=== PATIENT | female | born 1935 | race Caucasian/White ===

== ENCOUNTER 2022-09-06 11:04 | Inpatient (IN) | payer OTHER ==
[~2022-09-06] VITALS: Ht 157.5 cm; Wt 54.0 kg
[2022-09-06 11:33] LABS: BASOPHILS % (AUTO) 0.2 % (0.0-2.0); EOSINOPHILS % (AUTO) 0.1 % (0.0-4.0); HEMATOCRIT 28.2 % (36-48); HEMOGLOBIN 9.6 g/dL (12.0-16.0); LYMPHOCYTES # (AUTO) 1.2 K/uL (1.0-5.5); LYMPHOCYTES % (AUTO) 12.6 % (20.5-51.5); MEAN CORPUSCULAR HEMOGLOBIN 30 pg (27-31); MEAN CORPUSCULAR HGB CONC 34 % (32-36); MEAN CORPUSCULAR VOLUME 88 fL (79.0-98.0); MONOCYTES # (AUTO) 1.1 K/uL (0.0-1.0); MONOCYTES % (AUTO) 11.9 % (1.7-9.3); NEUTROPHILS # (AUTO) 7.3 K/uL (1.8-7.7); NEUTROPHILS % (AUTO) 75.2 % (40.0-70.0); PLATELET COUNT (AUTO) 297 K/uL (130-430); RED CELL DISTRIBUTION WIDTH 13.9 % (9.0-15.0); WHITE BLOOD COUNT (AUTO) 9.6 K/uL (4.8-10.8)
[2022-09-06 11:41] VITALS: BP_SYST 133
[2022-09-06 12:02] LABS: ANION GAP 6 (5-15); CREATININE 1.39 mg/dL (0.55-1.30); GLUCOSE 151 mg/dL (70-99); UREA NITROGEN, BLOOD 30 mg/dL (8-21)
[2022-09-06 12:08] LABS: ALANINE AMINOTRANSFERASE 40 U/L (12-78); ALBUMIN 3.9 g/dL (3.4-4.8); ASPARTATE AMINOTRANSFERASE 83 U/L (10-37); TOTAL BILIRUBIN 0.5 mg/dL (0.0-1.0)
[2022-09-06 12:09] LABS: CHLORIDE 85 mmol/L (98-107)
--- NOTE | 2022-09-06 12:09 | NUR ---
Patient to ER bed H1 to gown for evaluation. Side rails up.
--- NOTE | 2022-09-06 12:10 | NUR ---
Pt brought by Son, Alert and oriented x 4, pt presents to ER with SOB x 2 weeks, O2 97%, VSS, pt denies chest pain, skin pink and warm, cap refill <3, VSS, will cont to monitor
--- NOTE | 2022-09-06 12:12 | NUR ---
Dr Winters evaluating patient at bedside
[2022-09-06] MEDS ORDERED: METHYLPREDNISOLONE SOD SUCC 40 MG/ML VIAL IVP ONE ×2 (12:30→14:00)
--- NOTE | 2022-09-06 12:37 | NUR ---
COVID-19 SWAB AND INFLUENZA SWAB OBTAINED, LABELED, AND SENT TO THE LAB.
[2022-09-06] MEDS ORDERED: AZITHROMYCIN 500 MG in NS 250 ML IV ONE (12:45)
[2022-09-06] MEDS ORDERED: cefTRIAXone 1 GM IVPB PREMIX 50 ML IV ONE (12:45)
[2022-09-06] MEDS ORDERED: FUROSEMIDE 20 MG/2 ML VIAL IVP ONE (13:30)
--- NOTE | 2022-09-06 14:04 | NUR ---
Admit bed requested Patient will be admitted to care of . Admitted to TELE unit. Diagnosis COPD EXACERBATION Inpatient (Yes or No) YES Observation (Yes or No) NO Orientation concerns or request close to nursing station (Yes or No) NO Covid Status NEGATIVE On vent or bipap NO Isolation requirements NO Needs a sitter NO From Home (Yes or if No enter name of facility) HOME Requires Dialysis (Yes or No) NO Med Rec Completed (Yes of No) YES
--- NOTE | 2022-09-06 14:04 | NUR ---
Placed in room 08 . Placed on cardiac catheterization technician, blood pressure machine and pulse oximeter. To gown for exam. Side rails up. Report given to MIKY RODRIGUEZ.
[2022-09-06] MEDS ORDERED: AZITHROMYCIN 500 MG/VIAL (ZITHROMAX) IV ONE ×2 (15:15→15:32)
[2022-09-06] MEDS ORDERED: FUROSEMIDE 20 MG/2 ML VIAL ONE (15:32)
--- NOTE | 2022-09-06 15:41 | NUR ---
CONSULTATION PAGED/CALLED Reason for Consultation: [] RENAL Person Who was Notified: [] DR BOYCE Consulting Physician: [] DR BOYCE Electronic Page Makeup System Operator Specialty: [] NEPHRO Ordering Physician: [] DR CALDWELL
[2022-09-06] MEDS ORDERED: ACETAMINOPHEN 500 MG TABLET PO ONE (18:00)
[2022-09-06] MEDS ORDERED: LORazepam 1 MG TABLET PO ONE (18:00)
--- NOTE | 2022-09-06 18:13 | NUR ---
PULMOLOGYST AT BEDSIDE FOR INITIAL ASSESSMENT.
[2022-09-06] MEDS: IPRATROPIUM/ALBUTEROL SULFATE 3 ML AMPUL.NEB (DUONEB) INH SCH ×2 (19:00→23:25)
--- NOTE | 2022-09-06 19:30 | NUR ---
REPORT REC FROM MICHAEL BOLAÑOS. PT LAYING IN BED AWAKE, PT UNWILLING TO ANSWER QUESTIONS AND STATES "I WANT TO GO TO SLEEP" AND ROLLED OVER AND CLOSED EYES. VSS. SAFETY PRECAUTIONS IN PLACE AND CONNECTED TO MONITOR.
[2022-09-06] MEDS: NACL 0.9% 1,000 ML IV SCH (19:59)
[2022-09-06 20:37] VITALS: BP_SYST 104
--- NOTE | 2022-09-06 21:02 | NUR ---
PT UNABLE TO PROVIDE MED REC.
--- NOTE | 2022-09-06 21:26 | NUR ---
ADMISSION NOTE Received patient from ER via gurmiles, received report from RN. Patient admitted with diagnosis of COPD EXASCERBATION. Patient oriented to hospital routine, call light, toileting and safety-patient verbalized understanding.
--- NOTE | 2022-09-06 21:45 | NUR ---
Patient will be admitted to care of DR. CALDWELL. Admitted to TELEMETRY unit. Will go to room 122A. Belongings list completed. Complete and up to date summary report printed. SBAR report given to VALENTIN BOLAÑOS at bedside with opportunity for questions.
[2022-09-06 22:12] VITALS: BP_SYST 123
--- NOTE | 2022-09-06 22:30 | NUR ---
Initial RN notes Received pt from ED. Pt asleep, no s/s distress noted, no sob noted. O2 sat 95% on 1L via NC. IVF infusing on L. AC 20G good blood return. Call light within reach. Bed low, locked, siderails up x4, alarm on. Safety maintained. To monitor.
[2022-09-06] MEDS: METHYLPREDNISOLONE SOD SUCC 40 MG/ML VIAL IVP SCH (22:57)
[2022-09-06] MEDS: ENOXAPARIN SODIUM 30 MG/0.3 ML SYRINGE SUBCUT SCH (22:58)
--- NOTE | 2022-09-07 02:02 | NUR ---
Rounds Pt asleep, no s/s distress noted. Call light within reach. Safety maintained. To monitor.
[2022-09-07] MEDS: IPRATROPIUM/ALBUTEROL SULFATE 3 ML AMPUL.NEB (DUONEB) INH SCH ×6 (03:10→23:48)
--- NOTE | 2022-09-07 03:38 | NUR ---
Consultation Paged Reason for Consultation: COPD Was consult called: Y Person who was notified: Abi Consulting Physician: Dr. Benson Ordering Physician: Vernell Lofton
--- NOTE | 2022-09-07 04:50 | NUR ---
Pt had breathing treatment.
--- NOTE | 2022-09-07 06:50 | NUR ---
Closing notes Pt alert, awake, no s/s distress noted. Call light within reach. Bed low, locked, siderails up x4, alarm on. Fall precaution in place. To endorse to AM nurse.
[2022-09-07 08:00] VITALS: BP_SYST 100
[2022-09-07] MEDS: METHYLPREDNISOLONE SOD SUCC 40 MG/ML VIAL IVP SCH ×2 (08:14→20:18)
[2022-09-07] MEDS: cefTRIAXone 1 GM in D5W 50 ML IV SCH (08:14)
[2022-09-07 08:33] LABS: HEMATOCRIT 26.8 % (36-48); HEMOGLOBIN 9.2 g/dL (12.0-16.0); LYMPHOCYTES # (AUTO) 0.5 K/uL (1.0-5.5); LYMPHOCYTES % (AUTO) 6.9 % (20.5-51.5); MEAN CORPUSCULAR HEMOGLOBIN 30 pg (27-31); MEAN CORPUSCULAR HGB CONC 34 % (32-36); MEAN CORPUSCULAR VOLUME 88 fL (79.0-98.0); MONOCYTES # (AUTO) 0.6 K/uL (0.0-1.0); MONOCYTES % (AUTO) 7.7 % (1.7-9.3); NEUTROPHILS # (AUTO) 6.4 K/uL (1.8-7.7); NEUTROPHILS % (AUTO) 85.4 % (40.0-70.0); PLATELET COUNT (AUTO) 304 K/uL (130-430); RED BLOOD CELL COUNT(AUTO) 3.04 MIL/uL (4.2-6.2); RED CELL DISTRIBUTION WIDTH 13.7 % (9.0-15.0); WHITE BLOOD COUNT (AUTO) 7.5 K/uL (4.8-10.8)
[2022-09-07 08:49] LABS: ANION GAP 11 (5-15); CALCIUM 8.7 mg/dL (8.4-11.0); CHLORIDE 87 mmol/L (98-107); CREATININE 1.34 mg/dL (0.55-1.30); GLUCOSE 174 mg/dL (70-99); UREA NITROGEN, BLOOD 30 mg/dL (8-21)
[2022-09-07 08:54] LABS: ALANINE AMINOTRANSFERASE 38 U/L (12-78); ALBUMIN 3.6 g/dL (3.4-4.8); ASPARTATE AMINOTRANSFERASE 66 U/L (10-37); TOTAL BILIRUBIN 0.5 mg/dL (0.0-1.0)
[2022-09-07 13:40] VITALS: BP_SYST 112
[2022-09-07 15:43] VITALS: BP_SYST 99
[2022-09-07] MEDS ORDERED: METF500S9 PO (19:24)
[2022-09-07] MEDS ORDERED: OMEG-158 PO (19:24)
[2022-09-07] MEDS ORDERED: SYN50 PO (19:24)
[2022-09-07] MEDS ORDERED: METO25TA3 PO (19:24)
[2022-09-07 20:00] VITALS: BP_SYST 118
[2022-09-07] MEDS: ENOXAPARIN SODIUM 30 MG/0.3 ML SYRINGE SUBCUT SCH (20:19)
[2022-09-08] VITALS: BP_SYST 109
[2022-09-08] MEDS: IPRATROPIUM/ALBUTEROL SULFATE 3 ML AMPUL.NEB (DUONEB) INH SCH ×5 (04:29→20:00)
[2022-09-08] MEDS: NACL 0.9% 1,000 ML IV SCH (04:48)
[2022-09-08 08:36] VITALS: BP_SYST 112
[2022-09-08] MEDS: METHYLPREDNISOLONE SOD SUCC 40 MG/ML VIAL IVP SCH ×2 (08:38→21:05)
[2022-09-08] MEDS: cefTRIAXone 1 GM in D5W 50 ML IV SCH (08:38)
[2022-09-08] MEDS ORDERED: FUROSEMIDE 40 MG/4 ML VIAL IVP ONE (11:15)
[2022-09-08 11:58] LABS: ANION GAP 8 (5-15); CALCIUM 8.2 mg/dL (8.4-11.0); CHLORIDE 90 mmol/L (98-107); GLUCOSE 256 mg/dL (70-99); UREA NITROGEN, BLOOD 29 mg/dL (8-21)
[2022-09-08 12:00] VITALS: BP_SYST 121
--- NOTE | 2022-09-08 12:39 | NUR ---
INFORMED US MARIA G TO NOTIFY RNCB , PT 'S MONITOR NEEDS BATTERY CHANGE.
--- NOTE | 2022-09-08 13:58 | NUR ---
INFORMED AGAIN US MARIA G TO NOTIFY MIKY VIVAR, PT IS OFF MONITOR STILL.
[2022-09-08 16:00] VITALS: BP_SYST 116
--- NOTE | 2022-09-08 19:52 | NUR ---
RECEIVED PT LYING IN BED, NO DISTRESS NOTED, DENIES PAIN, AAOX2. B/L DIMINISHED LUNG SOUND O2 SAT 97% 1L NC. ABD DISTENDED AND FIRM PT DOES NOT RECALL WHEN SHE HAD A BM. BRUISING AND ECCHYMOSIS NOTED TO BLE. WEAK PULSES NOTED TO BLE. SALINE LOCK TO LT AC SITE CDI.
[2022-09-08 20:00] VITALS: BP_SYST 115
[2022-09-08] MEDS: ENOXAPARIN SODIUM 30 MG/0.3 ML SYRINGE SUBCUT SCH (21:06)
[2022-09-09] MEDS: IPRATROPIUM/ALBUTEROL SULFATE 3 ML AMPUL.NEB (DUONEB) INH SCH ×7 (00:17→23:00)
[2022-09-09 00:42] VITALS: BP_SYST 118
[2022-09-09 06:38] LABS: HEMOGLOBIN 9.9 g/dL (12.0-16.0); LYMPHOCYTES # (AUTO) 0.4 K/uL (1.0-5.5); LYMPHOCYTES % (AUTO) 3.6 % (20.5-51.5); MEAN CORPUSCULAR HEMOGLOBIN 31 pg (27-31); MEAN CORPUSCULAR HGB CONC 35 % (32-36); MEAN CORPUSCULAR VOLUME 88 fL (79.0-98.0); MONOCYTES # (AUTO) 0.6 K/uL (0.0-1.0); MONOCYTES % (AUTO) 5.4 % (1.7-9.3); NEUTROPHILS # (AUTO) 9.8 K/uL (1.8-7.7); PLATELET COUNT (AUTO) 388 K/uL (130-430); RED BLOOD CELL COUNT(AUTO) 3.19 MIL/uL (4.2-6.2); RED CELL DISTRIBUTION WIDTH 13.9 % (9.0-15.0); WHITE BLOOD COUNT (AUTO) 10.7 K/uL (4.8-10.8)
[2022-09-09 08:02] LABS: ALANINE AMINOTRANSFERASE 38 U/L (12-78); ALBUMIN 3.4 g/dL (3.4-4.8); ANION GAP 8 (5-15); ASPARTATE AMINOTRANSFERASE 46 U/L (10-37); CALCIUM 8.6 mg/dL (8.4-11.0); CHLORIDE 89 mmol/L (98-107); CREATININE 1.03 mg/dL (0.55-1.30); GLUCOSE 217 mg/dL (70-99); TOTAL BILIRUBIN 0.3 mg/dL (0.0-1.0); UREA NITROGEN, BLOOD 28 mg/dL (8-21)
[2022-09-09 08:54] VITALS: BP_SYST 130
[2022-09-09] MEDS ORDERED: FUROSEMIDE 40 MG/4 ML VIAL IVP SCH (09:00)
[2022-09-09] MEDS: METHYLPREDNISOLONE SOD SUCC 40 MG/ML VIAL IVP SCH ×2 (09:05→22:48)
[2022-09-09] MEDS: cefTRIAXone 1 GM in D5W 50 ML IV SCH (09:07)
[2022-09-09 12:00] VITALS: BP_SYST 104
[2022-09-09 12:21] LABS: HEMATOCRIT 30.4 % (36-48); HEMOGLOBIN 10.1 g/dL (12.0-16.0); LYMPHOCYTES # (AUTO) 0.5 K/uL (1.0-5.5); LYMPHOCYTES % (AUTO) 3.8 % (20.5-51.5); MEAN CORPUSCULAR HEMOGLOBIN 30 pg (27-31); MEAN CORPUSCULAR HGB CONC 33 % (32-36); MEAN CORPUSCULAR VOLUME 89 fL (79.0-98.0); MONOCYTES # (AUTO) 0.8 K/uL (0.0-1.0); MONOCYTES % (AUTO) 6.2 % (1.7-9.3); NEUTROPHILS # (AUTO) 11.5 K/uL (1.8-7.7); PLATELET COUNT (AUTO) 421 K/uL (130-430); RED BLOOD CELL COUNT(AUTO) 3.43 MIL/uL (4.2-6.2); WHITE BLOOD COUNT (AUTO) 12.8 K/uL (4.8-10.8)
[2022-09-09 12:26] LABS: ANION GAP 11 (5-15); CALCIUM 8.3 mg/dL (8.4-11.0); CHLORIDE 88 mmol/L (98-107); CREATININE 1.21 mg/dL (0.55-1.30); GLUCOSE 283 mg/dL (70-99); UREA NITROGEN, BLOOD 28 mg/dL (8-21)
[2022-09-09 16:00] VITALS: BP_SYST 110
[2022-09-09 20:00] VITALS: BP_SYST 101
[2022-09-09] MEDS: FUROSEMIDE 20 MG/2 ML VIAL IVP SCH (21:00)
[2022-09-09 22:40] VITALS: BP_SYST 99
[2022-09-09] MEDS: ENOXAPARIN SODIUM 30 MG/0.3 ML SYRINGE SUBCUT SCH (22:47)
[2022-09-10] MEDS: IPRATROPIUM/ALBUTEROL SULFATE 3 ML AMPUL.NEB (DUONEB) INH SCH ×5 (03:05→19:59)
[2022-09-10 04:00] VITALS: BP_SYST 113
[2022-09-10 09:35] VITALS: BP_SYST 101
[2022-09-10] MEDS: FUROSEMIDE 20 MG/2 ML VIAL IVP SCH ×2 (09:37→20:36)
[2022-09-10] MEDS: cefTRIAXone 1 GM in D5W 50 ML IV SCH (09:38)
[2022-09-10] MEDS: METHYLPREDNISOLONE SOD SUCC 40 MG/ML VIAL IVP SCH ×2 (09:38→20:36)
[2022-09-10] MEDS ORDERED: MILK OF MAGNESIA 30 ML UDC PO ONE (11:30)
[2022-09-10 11:31] VITALS: BP_SYST 110
[2022-09-10 15:31] VITALS: BP_SYST 117
[2022-09-10 20:00] VITALS: BP_SYST 106
[2022-09-10] MEDS: ENOXAPARIN SODIUM 30 MG/0.3 ML SYRINGE SUBCUT SCH (20:37)
[2022-09-11] VITALS: BP_SYST 103
[2022-09-11] MEDS: IPRATROPIUM/ALBUTEROL SULFATE 3 ML AMPUL.NEB (DUONEB) INH SCH ×7 (01:43→23:00)
[2022-09-11 07:06] LABS: BASOPHILS % (AUTO) 0.1 % (0.0-2.0); HEMATOCRIT 33.6 % (36-48); HEMOGLOBIN 11.4 g/dL (12.0-16.0); LYMPHOCYTES % (AUTO) 6.8 % (20.5-51.5); MEAN CORPUSCULAR HEMOGLOBIN 30 pg (27-31); MEAN CORPUSCULAR HGB CONC 34 % (32-36); MEAN CORPUSCULAR VOLUME 88 fL (79.0-98.0); MONOCYTES % (AUTO) 7.4 % (1.7-9.3); NEUTROPHILS # (AUTO) 12.2 K/uL (1.8-7.7); NEUTROPHILS % (AUTO) 85.7 % (40.0-70.0); PLATELET COUNT (AUTO) 473 K/uL (130-430); RED BLOOD CELL COUNT(AUTO) 3.82 MIL/uL (4.2-6.2); RED CELL DISTRIBUTION WIDTH 14.1 % (9.0-15.0); WHITE BLOOD COUNT (AUTO) 14.2 K/uL (4.8-10.8)
[2022-09-11 07:41] LABS: ANION GAP 8 (5-15); CALCIUM 8.2 mg/dL (8.4-11.0); CHLORIDE 89 mmol/L (98-107); CREATININE 1.18 mg/dL (0.55-1.30); GLUCOSE 194 mg/dL (70-99); UREA NITROGEN, BLOOD 38 mg/dL (8-21)
[2022-09-11 09:14] VITALS: BP_SYST 120
[2022-09-11] MEDS: DOCUSATE SODIUM 100 MG CAPSULE PO SCH (09:16)
[2022-09-11] MEDS: cefTRIAXone 1 GM in D5W 50 ML IV SCH (09:16)
[2022-09-11] MEDS: METHYLPREDNISOLONE SOD SUCC 40 MG/ML VIAL IVP SCH ×2 (09:17→21:34)
[2022-09-11] MEDS: FUROSEMIDE 20 MG/2 ML VIAL IVP SCH (09:17)
[2022-09-11 12:10] VITALS: BP_SYST 106
[2022-09-11] MEDS ORDERED: metroNIDAZOLE 250 MG TABLET PO ONE (12:30)
--- NOTE | 2022-09-11 15:00 | NUR ---
Dietitian Recommendations * Continue 2gmNa diet * Recommend Ensure HP (provides 700 kcal, 40g protein) GS, MPH, RD Please refer to RD Assessment for further details Addendum: 09/11/22 at [address] Amended: Links added.
[2022-09-11 16:25] VITALS: BP_SYST 121
[2022-09-11 20:00] VITALS: BP_SYST 114
--- NOTE | 2022-09-11 20:00 | NUR ---
Opening note- received pt in bed. Pt used bedpan with assist. multiple ecchymosis on Left hip, Rt hip and Rt leg. Perineal area skin intact. V/s stable afebrile.
[2022-09-11] MEDS: ENOXAPARIN SODIUM 30 MG/0.3 ML SYRINGE SUBCUT SCH (21:34)
[2022-09-11] MEDS: metroNIDAZOLE 250 MG TABLET PO SCH (21:35)
[2022-09-12 00:48] VITALS: BP_SYST 134
[2022-09-12] MEDS: IPRATROPIUM/ALBUTEROL SULFATE 3 ML AMPUL.NEB (DUONEB) INH SCH ×6 (03:00→23:00)
[2022-09-12] MEDS: metroNIDAZOLE 250 MG TABLET PO SCH ×3 (05:02→21:34)
--- NOTE | 2022-09-12 06:23 | NUR ---
Closing Note- pt slept well over night w/o distress. On room air. No s/sx of respiratory distress. Tele- SR with 1st deg AVB and ST depression. No u/o this am.
[2022-09-12 08:00] VITALS: BP_SYST 121
--- NOTE | 2022-09-12 08:00 | NUR ---
OPENING NOTE: Pt in bed A/O x4. No s/s of distress and no pain reported. Breathing even and unlabored. Put pt. on PureWick after cleaning. All needs met at this time, safety checks made and call light within reach.
[2022-09-12 08:20] LABS: HEMATOCRIT 34.7 % (36-48); HEMOGLOBIN 11.4 g/dL (12.0-16.0); LYMPHOCYTES # (AUTO) 1.8 K/uL (1.0-5.5); LYMPHOCYTES % (AUTO) 11.4 % (20.5-51.5); MEAN CORPUSCULAR HEMOGLOBIN 29 pg (27-31); MEAN CORPUSCULAR HGB CONC 33 % (32-36); MEAN CORPUSCULAR VOLUME 89 fL (79.0-98.0); MONOCYTES # (AUTO) 1.5 K/uL (0.0-1.0); MONOCYTES % (AUTO) 9.7 % (1.7-9.3); NEUTROPHILS # (AUTO) 12.5 K/uL (1.8-7.7); NEUTROPHILS % (AUTO) 78.9 % (40.0-70.0); PLATELET COUNT (AUTO) 464 K/uL (130-430); RED BLOOD CELL COUNT(AUTO) 3.91 MIL/uL (4.2-6.2); RED CELL DISTRIBUTION WIDTH 13.8 % (9.0-15.0); WHITE BLOOD COUNT (AUTO) 15.9 K/uL (4.8-10.8)
[2022-09-12] MEDS: DOCUSATE SODIUM 100 MG CAPSULE PO SCH (08:36)
[2022-09-12] MEDS: FUROSEMIDE 40 MG TABLET PO SCH (08:37)
[2022-09-12 08:57] LABS: ANION GAP 5 (5-15); CALCIUM 8.8 mg/dL (8.4-11.0); CHLORIDE 89 mmol/L (98-107); CREATININE 0.98 mg/dL (0.55-1.30); GLUCOSE 145 mg/dL (70-99); PHOSPHORUS 2.9 mg/dL (2.7-4.5); UREA NITROGEN, BLOOD 38 mg/dL (8-21)
[2022-09-12] MEDS: cefTRIAXone 1 GM in D5W 50 ML IV SCH (09:49)
[2022-09-12] MEDS: METHYLPREDNISOLONE SOD SUCC 40 MG/ML VIAL IVP SCH ×2 (09:49→21:30)
[2022-09-12 12:26] VITALS: BP_SYST 105
--- NOTE | 2022-09-12 12:40 | NUR ---
CONSULTATION PAGED/CALLED Reason for Consultation: Leukocytosis Person Who was Notified: Dr Gilman (in person) Consulting Physician: Dr Gilman Mirror Polisher Specialty: ID Ordering Physician: Dr Fontenot
--- NOTE | 2022-09-12 13:00 | NUR ---
ROUNDS Patient in bed resting with eyes closed, no sign of distress or pain. Patient is supported with pillows and has been turned q2h throughout the shift. All needs met at this time and safety checks made.
[2022-09-12 14:35] LABS: BILIRUBIN,URINE NEGATIVE (NEGATIVE); BLOOD, URINE NEGATIVE (NEGATIVE); CLARITY/URINE CLEAR (CLEAR); COLOR,URINE YELLOW (YELLOW); GLUCOSE,URINE TRACE (NEGATIVE); KETONES,URINE NEGATIVE (NEGATIVE); LEUKOCYTE ESTERASE ,URINE NEGATIVE (NEGATIVE); NITRITE, URINE NEGATIVE (NEGATIVE); PH,URINE 5.5 (5.0-8.0); PROTEIN URINE NEGATIVE (NEGATIVE); UROBILINOGEN,URINE 0.2 (0.2-1.0)
[2022-09-12] MEDS: PIPERACILLIN/TAZO 3.375/DEX-IS 50 ML IV SCH ×2 (17:17→23:35)
--- NOTE | 2022-09-12 18:46 | NUR ---
CLOSING NOTE Patient in bed resting eating dinner with family at bedside. Patient has been cooperative with her care throughout the shift. No sign of distress and patient denies pain. Breathing is nonlabored and even on room air. Patient has been updated on her plan of care, verbalized understanding. All needs met at this time and safety checks made. Will endorse to shift foreman nurse.
--- NOTE | 2022-09-12 19:50 | NUR ---
RECEIVED PT LYING IN BED, NO DISTRESS NOTED, DENIES PAIN. AAOX3. O2 SAT 94% RA. IV TO LT FA SITE CDI. LUNG SOUNDS DIMINISHED. BRUISING NOTED TO ALL EXTREMITIES. DRSG TO LLE CDI. ABD FIRM AND DISTENDED. PT INCONTINENT USING PURWICK. COOL AND WEAK PULSES TO BLE. REPOSITIONED AND CLEANED PT.
[2022-09-12 20:00] VITALS: BP_SYST 100
[2022-09-12] MEDS: ENOXAPARIN SODIUM 30 MG/0.3 ML SYRINGE SUBCUT SCH (21:30)
[2022-09-13 00:11] VITALS: BP_SYST 104
[2022-09-13] MEDS: IPRATROPIUM/ALBUTEROL SULFATE 3 ML AMPUL.NEB (DUONEB) INH SCH ×6 (03:00→23:00)
[2022-09-13] MEDS: metroNIDAZOLE 250 MG TABLET PO SCH ×3 (05:50→21:03)
[2022-09-13] MEDS: PIPERACILLIN/TAZO 3.375/DEX-IS 50 ML IV SCH ×4 (05:50→23:46)
[2022-09-13 08:28] VITALS: BP_SYST 110
--- NOTE | 2022-09-13 08:30 | NUR ---
OPENING NOTES: Pt is in bed A/O x4, sitting up eating breakfast. Breathing is even and unlabored. No s/s of distress. Pt. updated on her plan of care. All needs met at this time, safety checks made and call light within reach.
[2022-09-13] MEDS: DOCUSATE SODIUM 100 MG CAPSULE PO SCH (08:54)
[2022-09-13] MEDS: FUROSEMIDE 40 MG TABLET PO SCH (08:55)
[2022-09-13] MEDS: METHYLPREDNISOLONE SOD SUCC 40 MG/ML VIAL IVP SCH ×2 (10:14→20:41)
--- NOTE | 2022-09-13 10:21 | NUR ---
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
[2022-09-13 11:32] VITALS: BP_SYST 114
[2022-09-13 12:00] VITALS: BP_SYST 113
[2022-09-13 14:50] VITALS: BP_SYST 116
--- NOTE | 2022-09-13 14:54 | NUR ---
UNABLE TO RECEIVE BOWEL FOLLOW THROUGH Per radiologist, unable to perform small bowel follow through due to fecal impaction. Paged Dr Helton for orders.
[2022-09-13] MEDS ORDERED: POLYETHYLENE GLYCOL 3350, 17 GM/ POWD.PACK PO ONE (18:00)
--- NOTE | 2022-09-13 19:04 | NUR ---
CLOSING NOTE PAtient in bed resting, no sign of distress and patient denies pain. Patient states that she feels constipated and uncomfortable in bed. Turned patient q2h throughout shift. Patient is eager to continue working with physical therapy so that she can get out of bed. Comfort measures provided throughout the shift. Patient updated on her plan of care, verbalized understanding. All needs met at this time and safety checks made. Endorsed to shift supervisor rn nurse.
[2022-09-13 20:00] VITALS: BP_SYST 131
[2022-09-13] MEDS: LACTULOSE 20 GM/30 ML UDC PO SCH (20:41)
[2022-09-13] MEDS: ENOXAPARIN SODIUM 30 MG/0.3 ML SYRINGE SUBCUT SCH (20:41)
--- NOTE | 2022-09-13 20:54 | NUR ---
PT IS AWAKE AND ALERT. SHE IS IN ROOM AIR. NO DISTRESS NOTED. HER ABD IS FIRM. VITAL SIGN IS STABLE. SHE IS UNSTEADY
[2022-09-14 01:29] VITALS: BP_SYST 101
[2022-09-14] MEDS: IPRATROPIUM/ALBUTEROL SULFATE 3 ML AMPUL.NEB (DUONEB) INH SCH ×6 (03:00→23:24)
--- NOTE | 2022-09-14 04:59 | NUR ---
PT IS CURRENTLY SLEEPING. LOWER THE BED. SIDE RAILS UP
[2022-09-14] MEDS: metroNIDAZOLE 250 MG TABLET PO SCH ×3 (05:22→21:51)
[2022-09-14] MEDS: PIPERACILLIN/TAZO 3.375/DEX-IS 50 ML IV SCH ×2 (05:23→11:37)
--- NOTE | 2022-09-14 05:26 | NUR ---
pt has had bowel movement yet.
[2022-09-14 06:58] LABS: EOSINOPHILS % (AUTO) 0.1 % (0.0-4.0); HEMATOCRIT 33.6 % (36-48); HEMOGLOBIN 11.2 g/dL (12.0-16.0); LYMPHOCYTES # (AUTO) 1.5 K/uL (1.0-5.5); LYMPHOCYTES % (AUTO) 9.7 % (20.5-51.5); MEAN CORPUSCULAR HEMOGLOBIN 30 pg (27-31); MEAN CORPUSCULAR HGB CONC 33 % (32-36); MEAN CORPUSCULAR VOLUME 88 fL (79.0-98.0); MONOCYTES # (AUTO) 1.3 K/uL (0.0-1.0); MONOCYTES % (AUTO) 8.3 % (1.7-9.3); NEUTROPHILS # (AUTO) 12.6 K/uL (1.8-7.7); NEUTROPHILS % (AUTO) 81.9 % (40.0-70.0); PLATELET COUNT (AUTO) 449 K/uL (130-430); RED BLOOD CELL COUNT(AUTO) 3.81 MIL/uL (4.2-6.2); RED CELL DISTRIBUTION WIDTH 13.8 % (9.0-15.0); WHITE BLOOD COUNT (AUTO) 15.4 K/uL (4.8-10.8)
[2022-09-14 07:16] LABS: CALCIUM 8.6 mg/dL (8.4-11.0); CHLORIDE 86 mmol/L (98-107); CREATININE 1.08 mg/dL (0.55-1.30); GLUCOSE 207 mg/dL (70-99); UREA NITROGEN, BLOOD 32 mg/dL (8-21)
--- NOTE | 2022-09-14 07:45 | NUR ---
PHYSICAL THERAPY CO-SIGN The Physical Therapy Progress Notes documented by Government Relations Analyst have been reviewed. Reviewed/Co-Signed by: Choco Sunshine Documentation Done by: KALIN JOHNS PTA Addendum: 09/14/22 at 0746 by Choco Sunshine PT Amended: Links added.
--- NOTE | 2022-09-14 07:45 | NUR ---
Report received from Jose L BOLAÑOS. Pt is awake alert and oriented x3-4, vs stable, no acute distress noted. Assuming care for pt.
[2022-09-14 07:51] LABS: ANION GAP 9 (5-15)
[2022-09-14 08:10] VITALS: BP_SYST 124
--- NOTE | 2022-09-14 08:10 | NUR ---
0802 Report from lab received from Rosi Ambriz from lab for K 2.7. Patient asymptomatic at this time. Will inform Dr. Treviño 0810 The above critical value k 2.[address] Emery. Orders received. Pt stable at this time.
[2022-09-14] MEDS ORDERED: POTASSIUM CHLORIDE 20 MEQ TAB.PRT.SR PO ONE (08:15)
[2022-09-14] MEDS ORDERED: KCL 40 mEq in 100 mL (PREMIX) 100 ML IV ONE (08:15)
[2022-09-14] MEDS ORDERED: BISACODYL 10 MG/SUPPOSITORY RC ONE (09:00)
[2022-09-14] MEDS: FUROSEMIDE 40 MG TABLET PO SCH (09:56)
[2022-09-14] MEDS: LACTULOSE 20 GM/30 ML UDC PO SCH ×2 (09:56→21:53)
[2022-09-14] MEDS: METHYLPREDNISOLONE SOD SUCC 40 MG/ML VIAL IVP SCH ×2 (09:57→21:50)
[2022-09-14] MEDS ORDERED: POTASSIUM CHLORIDE 40 MEQ in NS 250 ML IV ONE (11:00)
--- NOTE | 2022-09-14 13:00 | NUR ---
robles catheter 16 F inserted using sterile technic. Pt tolerated well. Addendum: 09/14/22 at 1511 by Juarez Spann RN RN Amended: Links added.
[2022-09-14 13:31] VITALS: BP_SYST 119
--- NOTE | 2022-09-14 15:00 | NUR ---
Called and spoke to Covering Dr. Fontenot. Pt has on 2 small soft bm after lactulose and suppository given. Ogden catheter inserted as ordered with 950 cc output. Tap water enema x1 order received and follow up K follow up to be drawn after k rider is completed. Will closely monitor pt.
--- NOTE | 2022-09-14 17:30 | NUR ---
Large soft to liquid brown bm noted post water enema completed. Pt states feeling a bit better. pt abdomen remains enlarge and round but soft to touch. Will closely monitor pt.
[2022-09-14 18:02] VITALS: BP_SYST 124
[2022-09-14 20:00] VITALS: BP_SYST 100
[2022-09-14] MEDS: ENOXAPARIN SODIUM 30 MG/0.3 ML SYRINGE SUBCUT SCH (21:54)
[2022-09-15] VITALS: BP_SYST 101
[2022-09-15] MEDS: PIPERACILLIN/TAZO 3.375/DEX-IS 50 ML IV SCH ×5 (00:31→23:25)
[2022-09-15] MEDS: IPRATROPIUM/ALBUTEROL SULFATE 3 ML AMPUL.NEB (DUONEB) INH SCH ×6 (03:47→23:47)
[2022-09-15] MEDS: metroNIDAZOLE 250 MG TABLET PO SCH ×3 (05:26→21:21)
--- NOTE | 2022-09-15 07:49 | NUR ---
PHYSICAL THERAPY CO-SIGN The Physical Therapy Progress Notes documented by Refractory Grinder Operator have been reviewed. Reviewed/Co-Signed by: Choco Sunshine Documentation Done by: KALIN JOHNS PTA Addendum: 09/15/22 at 0749 by Choco Sunshine PT Amended: Links added.
[2022-09-15 08:35] VITALS: BP_SYST 104
[2022-09-15] MEDS: METHYLPREDNISOLONE SOD SUCC 40 MG/ML VIAL IVP SCH ×2 (09:00→21:18)
[2022-09-15] MEDS: FUROSEMIDE 40 MG TABLET PO SCH (09:01)
[2022-09-15] MEDS: LACTULOSE 20 GM/30 ML UDC PO SCH ×2 (09:01→21:19)
[2022-09-15 10:36] LABS: ANION GAP 7 (5-15); CALCIUM 8.7 mg/dL (8.4-11.0); CHLORIDE 90 mmol/L (98-107); CREATININE 1.17 mg/dL (0.55-1.30); GLUCOSE 233 mg/dL (70-99); UREA NITROGEN, BLOOD 28 mg/dL (8-21)
[2022-09-15 10:37] VITALS: BP_SYST 104
[2022-09-15 10:39] LABS: EOSINOPHILS # (AUTO) 0.1 K/uL (0.0-0.4); EOSINOPHILS % (AUTO) 0.5 % (0.0-4.0); HEMATOCRIT 31.1 % (36-48); HEMOGLOBIN 10.4 g/dL (12.0-16.0); LYMPHOCYTES # (AUTO) 1.3 K/uL (1.0-5.5); LYMPHOCYTES % (AUTO) 7.1 % (20.5-51.5); MEAN CORPUSCULAR HEMOGLOBIN 30 pg (27-31); MEAN CORPUSCULAR HGB CONC 34 % (32-36); MEAN CORPUSCULAR VOLUME 88 fL (79.0-98.0); MONOCYTES # (AUTO) 1.6 K/uL (0.0-1.0); MONOCYTES % (AUTO) 8.7 % (1.7-9.3); NEUTROPHILS # (AUTO) 15.2 K/uL (1.8-7.7); NEUTROPHILS % (AUTO) 83.7 % (40.0-70.0); PLATELET COUNT (AUTO) 398 K/uL (130-430); RED BLOOD CELL COUNT(AUTO) 3.52 MIL/uL (4.2-6.2); RED CELL DISTRIBUTION WIDTH 13.7 % (9.0-15.0); WHITE BLOOD COUNT (AUTO) 18.2 K/uL (4.8-10.8)
[2022-09-15] MEDS ORDERED: SODIUM PHOSPHATE,MONO-DIBASIC 133 ML ENEMA RC ONE (11:00)
[2022-09-15 11:42] VITALS: BP_SYST 109
--- NOTE | 2022-09-15 15:11 | NUR ---
PT'S SON DEB, AT BEDSIDE. UPDATED RE: NEW ORDER FOR HOSPICE EVAL. HE SAID HE DOES NOT WANT THAT FOR HIS MOM. DEB IS THE DPOA. DR. MAYO S/W ILA, PT'S OTHER SON. ORDER UPDATED FOR DC PLANNING TO REHAB. S/W AUBREY, RN SANE.
[2022-09-15 16:52] VITALS: BP_SYST 103
--- NOTE | 2022-09-15 18:18 | NUR ---
PT REMAINED STABLE THROUGHOUT THE DAY. PT GIVEN FLEET ENEMA. PT HAD A LARGE BROWN SOFT BOWEL MOVEMENT. CHRIS/SKIN CARE PROVIDED. ALL CARE NEEDS MET AT THIS TIME. FALL/SAFETY PRECAUTIONS IN PLACE. WILL ENDORSE CARE TO PM NURSE.
[2022-09-15 19:38] VITALS: BP_SYST 97
[2022-09-15] MEDS: ENOXAPARIN SODIUM 30 MG/0.3 ML SYRINGE SUBCUT SCH (21:21)
[2022-09-16 00:32] VITALS: BP_SYST 110
[2022-09-16] MEDS: IPRATROPIUM/ALBUTEROL SULFATE 3 ML AMPUL.NEB (DUONEB) INH SCH ×6 (03:00→23:00)
--- NOTE | 2022-09-16 05:27 | NUR ---
09/15/2022-2100. pt had 2 episodes of Liquid brown colored stool. encouraged fluids. denies other complaints 0400- nurse rounding, pt repositioned every 2 hr and as needed. no distress noted
[2022-09-16] MEDS: metroNIDAZOLE 250 MG TABLET PO SCH ×3 (06:00→21:31)
[2022-09-16] MEDS: PIPERACILLIN/TAZO 3.375/DEX-IS 50 ML IV SCH ×3 (06:00→17:18)
--- NOTE | 2022-09-16 07:35 | NUR ---
OPENING NOTE Received report from manager night RN. Patient is awake, alert, oriented. Denies pain or discomfort. Ogden catheter intact. IV intact, fluids running TKO. Call light within reach. All safety precautions observed.
--- NOTE | 2022-09-16 07:44 | NUR ---
ENDORSED CARE TO MORNING RN
[2022-09-16 08:15] VITALS: BP_SYST 110
[2022-09-16] MEDS: LACTULOSE 20 GM/30 ML UDC PO SCH ×2 (08:56→21:20)
[2022-09-16] MEDS: FUROSEMIDE 40 MG TABLET PO SCH (08:56)
[2022-09-16] MEDS: METHYLPREDNISOLONE SOD SUCC 40 MG/ML VIAL IVP SCH ×2 (08:57→21:20)
--- NOTE | 2022-09-16 11:15 | NUR ---
FAMILY AT BEDSIDE Son at bedside at this time.
[2022-09-16 11:32] VITALS: BP_SYST 109
[2022-09-16] MEDS ORDERED: GOLYTELY / COLYTE SOLUTION 4 LITERS PO ONE (16:00)
[2022-09-16 16:18] VITALS: BP_SYST 118
--- NOTE | 2022-09-16 17:00 | NUR ---
GOLYTELY AT BEDSIDE GoLytely at bedside. Patient educated to drink half the jug in the next 24 hours. Addendum: 09/16/22 at 1852 by Ish Bedoya RN Ordered by Dr. Aleman
--- NOTE | 2022-09-16 18:52 | NUR ---
CLOSING NOTE Patient laying in bed at this time. Awake, alert, oriented. IV site intact. Ogden intact. Denies pain or discomfort. Call light within reach. All safety precautions observed.
[2022-09-16 20:38] VITALS: BP_SYST 104
[2022-09-16] MEDS: ENOXAPARIN SODIUM 30 MG/0.3 ML SYRINGE SUBCUT SCH (21:21)
[2022-09-17] MEDS: PIPERACILLIN/TAZO 3.375/DEX-IS 50 ML IV SCH ×3 (00:38→12:27)
--- NOTE | 2022-09-17 01:45 | NUR ---
pt resting in bed. no respiratory distress seen. compliant with drinking of Golytely.
[2022-09-17 02:00] VITALS: BP_SYST 112
[2022-09-17] MEDS: IPRATROPIUM/ALBUTEROL SULFATE 3 ML AMPUL.NEB (DUONEB) INH SCH ×3 (04:35→11:15)
[2022-09-17] MEDS: metroNIDAZOLE 250 MG TABLET PO SCH ×2 (05:40→15:19)
[2022-09-17 07:03] LABS: HEMATOCRIT 29.8 % (36-48); LYMPHOCYTES # (AUTO) 0.9 K/uL (1.0-5.5); MEAN CORPUSCULAR HEMOGLOBIN 30 pg (27-31); MEAN CORPUSCULAR HGB CONC 34 % (32-36); MEAN CORPUSCULAR VOLUME 88 fL (79.0-98.0); MONOCYTES # (AUTO) 0.9 K/uL (0.0-1.0); MONOCYTES % (AUTO) 6.8 % (1.7-9.3); NEUTROPHILS % (AUTO) 86.2 % (40.0-70.0); PLATELET COUNT (AUTO) 353 K/uL (130-430); RED CELL DISTRIBUTION WIDTH 13.9 % (9.0-15.0); WHITE BLOOD COUNT (AUTO) 12.8 K/uL (4.8-10.8)
--- NOTE | 2022-09-17 07:05 | NUR ---
OPENING NOTE Received report from fire protection fabricator RN. Upon entering room, patient remains asleep. She does not appear to be in any distress, pain, or discomfort. IV site intact at this time. Call light within reach. Safety precautions observed.
[2022-09-17 07:14] LABS: ANION GAP 10 (5-15); CALCIUM 8.6 mg/dL (8.4-11.0); CHLORIDE 89 mmol/L (98-107); CREATININE 1.24 mg/dL (0.55-1.30); GLUCOSE 244 mg/dL (70-99); UREA NITROGEN, BLOOD 28 mg/dL (8-21)
[2022-09-17 08:29] VITALS: BP_SYST 114
[2022-09-17 08:35] LABS: C-REACTIVE PROTEIN QUANT < 0.2 mg/dL (0-0.5)
[2022-09-17] MEDS ORDERED: POTASSIUM CHLORIDE 20 MEQ TAB.PRT.SR PO ONE (09:30)
[2022-09-17] MEDS: FUROSEMIDE 40 MG TABLET PO SCH (09:50)
[2022-09-17] MEDS: LACTULOSE 20 GM/30 ML UDC PO SCH ×2 (09:50→21:29)
[2022-09-17] MEDS ORDERED: prednisoLONE 15 MG/5 ML UDC PO ONE (10:00)
[2022-09-17] MEDS ORDERED: DOCUSATE SODIUM 100 MG CAPSULE PO ONE (10:15)
[2022-09-17 10:42] LABS: ERYTHROCYTE SEDIMENTATION RATE 8 MM/HR (0-20)
[2022-09-17 12:00] VITALS: BP_SYST 117
--- NOTE | 2022-09-17 12:00 | NUR ---
RN ROUNDS Patient remains in bed, sitting up, awake, alert, and oriented. She denies pain, but states she is uncomfortable. Patient repositioned in bed. She tolerated repositioning well. Call light within reach. Safety precautions observed.
--- NOTE | 2022-09-17 14:15 | NUR ---
IV RE-SITED Right forearm 22G infiltrated. Was removed and dressing applied. No active bleeding. It was re-sited to right antecubital. 20G. IV intact, flushes well. Transparent dressing applied. Covered in kerlix. She tolerated procedure well.
[2022-09-17 16:00] VITALS: BP_SYST 120
--- NOTE | 2022-09-17 16:30 | NUR ---
GI ROUNDS Dr. Aleman at bedside. Orders to follow.
[2022-09-17] MEDS ORDERED: MINERAL OIL 133 ML ENEMA RC ONE (17:30)
[2022-09-17] MEDS: cefTRIAXone 1 GM in D5W 50 ML IV SCH (17:59)
[2022-09-17] MEDS: BISACODYL 10 MG/SUPPOSITORY RC PRN (18:00)
--- NOTE | 2022-09-17 18:00 | NUR ---
ENEMA AND SUPPOSITORY ADMINISTERED Completed as ordered. No bowel movement seen after administration. Patient tolerated well.
--- NOTE | 2022-09-17 19:03 | NUR ---
CLOSING NOTE Patient sitting in bed. Has just finished dinner. She does not report any pain or discomfort. IV site intact at this time. Call light within reach. Safety precautions observed. No bowel movements since enema and suppository.
[2022-09-17 20:23] VITALS: BP_SYST 124
[2022-09-17] MEDS: ENOXAPARIN SODIUM 30 MG/0.3 ML SYRINGE SUBCUT SCH (21:30)
[2022-09-18 01:11] VITALS: BP_SYST 146
--- NOTE | 2022-09-18 01:28 | NUR ---
pt repositioned as needed, no bowel movement since taking golytley
[2022-09-18] MEDS: IPRATROPIUM/ALBUTEROL SULFATE 3 ML AMPUL.NEB (DUONEB) INH SCH ×5 (07:32→23:00)
--- NOTE | 2022-09-18 07:35 | NUR ---
PT RESTING IN BED, HAD VERY LITTLE HARD FORMED STOOL OVERNIGHT. ENDORSED CARE TO AM RN
[2022-09-18 08:00] VITALS: BP_SYST 114
[2022-09-18 08:40] LABS: BASOPHILS % (AUTO) 0.1 % (0.0-2.0); EOSINOPHILS % (AUTO) 0.2 % (0.0-4.0); HEMATOCRIT 33.5 % (36-48); HEMOGLOBIN 11.2 g/dL (12.0-16.0); LYMPHOCYTES # (AUTO) 2.2 K/uL (1.0-5.5); LYMPHOCYTES % (AUTO) 12.4 % (20.5-51.5); MEAN CORPUSCULAR HEMOGLOBIN 29 pg (27-31); MEAN CORPUSCULAR HGB CONC 33 % (32-36); MEAN CORPUSCULAR VOLUME 88 fL (79.0-98.0); MONOCYTES # (AUTO) 1.4 K/uL (0.0-1.0); MONOCYTES % (AUTO) 7.6 % (1.7-9.3); NEUTROPHILS # (AUTO) 14.4 K/uL (1.8-7.7); NEUTROPHILS % (AUTO) 79.7 % (40.0-70.0); PLATELET COUNT (AUTO) 361 K/uL (130-430); RED BLOOD CELL COUNT(AUTO) 3.81 MIL/uL (4.2-6.2); RED CELL DISTRIBUTION WIDTH 13.8 % (9.0-15.0); WHITE BLOOD COUNT (AUTO) 18.1 K/uL (4.8-10.8)
[2022-09-18] MEDS ORDERED: MINERAL OIL 133 ML ENEMA RC ONE (08:45)
[2022-09-18 08:49] LABS: ALANINE AMINOTRANSFERASE 66 U/L (12-78); ALBUMIN 3.2 g/dL (3.4-4.8); ANION GAP 8 (5-15); ASPARTATE AMINOTRANSFERASE 44 U/L (10-37); CALCIUM 9.1 mg/dL (8.4-11.0); CHLORIDE 89 mmol/L (98-107); CREATININE 1.09 mg/dL (0.55-1.30); GLUCOSE 136 mg/dL (70-99); PHOSPHORUS 2.5 mg/dL (2.7-4.5); TOTAL BILIRUBIN 0.5 mg/dL (0.0-1.0); UREA NITROGEN, BLOOD 28 mg/dL (8-21)
[2022-09-18] MEDS: predniSONE 20 MG TABLET PO SCH (09:00)
[2022-09-18] MEDS: FUROSEMIDE 40 MG TABLET PO SCH (09:00)
[2022-09-18] MEDS: LACTULOSE 20 GM/30 ML UDC PO SCH (09:00)
[2022-09-18] MEDS: POTASSIUM CHLORIDE 20 MEQ TAB.PRT.SR PO SCH (09:00)
[2022-09-18 09:16] VITALS: BP_SYST 114
[2022-09-18 09:59] LABS: C-REACTIVE PROTEIN QUANT < 0.2 mg/dL (0-0.5)
[2022-09-18] MEDS ORDERED: POTASSIUM CHLORIDE 20 MEQ TAB.PRT.SR PO ONE (11:15)
[2022-09-18] MEDS ORDERED: KCL 40 mEq in 100 mL (PREMIX) 100 ML IV ONE (11:15)
[2022-09-18] MEDS: BISACODYL 10 MG/SUPPOSITORY RC PRN (11:52)
[2022-09-18] MEDS: DOCUSATE SODIUM 100 MG CAPSULE PO SCH (11:56)
[2022-09-18 12:00] VITALS: BP_SYST 116
[2022-09-18] MEDS ORDERED: POTASSIUM CHLORIDE 40 MEQ in NS 250 ML IV ONE (13:00)
[2022-09-18] MEDS: FLUCONAZOLE 100 mg/ NS 50 ML IV SCH (13:00)
[2022-09-18] MEDS ORDERED: METOCLOPRAMIDE HCL 10 MG/2 ML VIAL IVP SCH (14:00)
[2022-09-18 14:04] LABS: ERYTHROCYTE SEDIMENTATION RATE 7 MM/HR (0-20)
--- NOTE | 2022-09-18 14:11 | NUR ---
Nutrition Note: time analysis clerk reached out to RD to clarify if patient can stop dry tray. Per dietetic assistant, pt RN stated MD does not want patient on fluid restriction and pt should be getting fluids on her tray. Per EMR review, patient has Fluid Restriction 900mL ordered since 09/09. RD s/w RN and informed RN that patient can receive increased fluids on her tray if MD changes/cancels fluid restriction currently ordered. Per RN, she does not have time to call MD to discuss this. RD attempted to call Dr Fontenot, however no answer at this time. RD will continue to monitor per nutrition care standards. Елена Solo MPH, RDN
[2022-09-18 16:00] VITALS: BP_SYST 114
[2022-09-18] MEDS: cefTRIAXone 1 GM in D5W 50 ML IV SCH (17:07)
[2022-09-18] MEDS ORDERED: PANTOPRAZOLE SODIUM 40 MG/VIAL (PROTONIX) IVP ONE (17:45)
--- NOTE | 2022-09-18 20:42 | NUR ---
Nutrition F/U: RDN reviewed pts current EMR including diet Hx, physician notes, nursing notes, pertinent labs, Medications, procedures, care trends, and care activity. Shortened note d/t high RD workload Admission Dx: COPD exacerbation PMH: Per EMR: 87-year-old woman with PMH of COPD who presented to the emergency room secondary shortness of breath. She was having shortness of breath since the last few weeks which was getting worse. On arrival to the emergency room she was noted to be hypoxemic. Chest x-ray shows pulmonary edema as well as possible infiltrates. Subjective information: RD rounded to patient room and s/w patient at bedside. Patient endorses she does not like foods being provided and she cannot eat much due to indigestion. Pt requested TUMS, informed patient that RD will discuss this w/ MD and RN. Pt reports she has not had a BM for a long time. RD s/w pt RN again to discuss 900mL fluid restriction and constipation. RD witnessed patient with hard, distended abdomen. Per RN, pt has had enema and an attempted digital impaction w/ no relief. Pt was agreeable to trying prune juice; RD provided prune juice and a fiber one bar to RN to assist patient with constipation. RD informed RN that per the discussion earlier today, RD was unsuccessful in contacting the MD to discuss constipation and fluids. RN endorses she will attempt to contact MD software sales consultant this evening. RD will f/u tomorrow morning with RN as well as discuss fluid restriction and constipation during interdisciplinary LOS meeting 09/19 am. Patient requires fluids and a more aggressive bowel regimen to relieve pain and distension and have a soft BM, per MS discretion. Per RD chart review, pt noted with LBM x 1 on 09/16; 1 x BM 09/15; and 4 x BM 09/14. Noted discrepancy between pt report of no BM for a long time with pt hard/distended abdomen and multiple documented BM since 09/14. RD will f/u with RN for clarification on 09/19. Current diet/Nutrition support: Na2gm diet x 12 days; 900mL fluid restriction x 9 days Current % PO Poor avg 35% x 6 meals (worsened) Estimated Energy Expenditure (kcals/day) 5942-5410 kcal (30-35kcal/kg CBW d/t COPD) Estimated Protein Required (g/day) 65- 92g (1.2-1.7 g/kg CBW d/t COPD) Estimated Fluid Required (l/day) 1.6-1.8L (1 mL/kcal) Problem/Etiology/Signs/Symptoms * Increased energy and protein utilization r/t metabolic demands a/e/b estimated nutritional needs for COPD (on-going) * Altered GI function r/t constipation a/e/b hard, distended abdomen, no BM documented x 2 days, pt report of no BM for a long time (New) Expected Outcomes/Goals PO intake provides >85% estimated nutrient needs, nutrition-related labs trending WNL, continued skin integrity, BM q1-3 days Dietitian Recommendations * Continue 2gmNa diet * Recommend d/c fluid restriction for constipation relief * Consider a more aggressive bowel regimen for hard, impacted stool * Recommend Prune juice daily * Recommend Ensure HP BID (provides 700 kcal, 40g protein) once fluid restriction has been discontinued Follow Up High Risk: F/U in 1-2 days
--- NOTE | 2022-09-18 20:44 | NUR ---
Dietitian Recommendations * Continue 2gmNa diet * Recommend d/c fluid restriction for constipation relief * Consider a more aggressive bowel regimen for hard, impacted stool * Recommend Prune juice daily * Recommend Ensure HP BID (provides 700 kcal, 40g protein) once fluid restriction has been discontinued Please refer to nutrition f/u for details, thanks! Елена Solo MPH, RDN
[2022-09-19 00:58] VITALS: BP_SYST 126
[2022-09-19] MEDS: LACTULOSE 20 GM/30 ML UDC PO SCH ×3 (02:34→20:44)
[2022-09-19] MEDS: ENOXAPARIN SODIUM 30 MG/0.3 ML SYRINGE SUBCUT SCH ×2 (02:34→20:44)
[2022-09-19] MEDS: IPRATROPIUM/ALBUTEROL SULFATE 3 ML AMPUL.NEB (DUONEB) INH SCH ×6 (03:37→22:59)
[2022-09-19 08:07] LABS: ANION GAP 8 (5-15); CALCIUM 9.1 mg/dL (8.4-11.0); CHLORIDE 92 mmol/L (98-107); CREATININE 0.91 mg/dL (0.55-1.30); GLUCOSE 144 mg/dL (70-99); UREA NITROGEN, BLOOD 31 mg/dL (8-21)
--- NOTE | 2022-09-19 08:13 | NUR ---
PHYSICAL THERAPY CO-SIGN The Physical Therapy Progress Notes documented by Communications Equipment Operator have been reviewed. Reviewed/Co-Signed by: Choco Sunshine Documentation Done by: AD HERNANDEZ PTA Addendum: 09/19/22 at 0814 by Choco Sunshine PT Amended: Links added.
[2022-09-19 08:26] VITALS: BP_SYST 125
[2022-09-19] MEDS ORDERED: GOLYTELY / COLYTE SOLUTION 4 LITERS PO ONE (09:00)
[2022-09-19] MEDS ORDERED: PANTOPRAZOLE SODIUM 40 MG/VIAL (PROTONIX) IVP SCH (09:00)
[2022-09-19] MEDS ORDERED: BISACODYL 10 MG/SUPPOSITORY RC ONE (10:00)
[2022-09-19] MEDS: DOCUSATE SODIUM 100 MG CAPSULE PO SCH (10:10)
[2022-09-19] MEDS: FUROSEMIDE 40 MG TABLET PO SCH (10:10)
[2022-09-19] MEDS: predniSONE 20 MG TABLET PO SCH (10:18)
[2022-09-19] MEDS: POTASSIUM CHLORIDE 20 MEQ TAB.PRT.SR PO SCH (10:18)
[2022-09-19] MEDS: FLUCONAZOLE 100 mg/ NS 50 ML IV SCH (10:19)
[2022-09-19] MEDS ORDERED: BISA10SU61 RC (11:13)
[2022-09-19] MEDS ORDERED: POLY17PO4 PO (11:58)
[2022-09-19] MEDS ORDERED: PRED5TAB PO (11:58)
[2022-09-19 12:00] VITALS: BP_SYST 122
--- NOTE | 2022-09-19 13:27 | NUR ---
Nutrition note: RD reviewed pts current EMR including diet hx, physician notes, nursing notes, pertinent labs/meds/procedures, care trends and care activity. Short note d/t high workload Subjective: RD visited pt and she reports that she has still not had any BM in days (chart says that she had 1 today). 900mL fluid restriction still in place, despite her hyponatremia being resolved. Chart says pt abd is likely impacted with feces. Per EMR review, pt abd is firm and distended. RD reached out to RNWisam, to see if we could remove the fluid restriction, so she can resume normal BMs, but he said he had to talk with doctor first. RD tried calling multiple times to reach either Dr. Emery or Dr. Fontenot, but never heard back. Per MD notes: 09/18 :"Patient had multiple bowel movement after Ogden catheter placement. Dr. Griffin suggested KUB which showed severe constipation with fecal impaction." RD unsure if patient is confused about bowel movement or if it has been documented incorrectly. RD Recommendations: * If medically appropriate, please remove fluid restriction for this patient. Thank you JOE, MPH, RD
--- NOTE | 2022-09-19 14:39 | NUR ---
Spoke with JOHN Reynolds and Dr. Kilgore regarding patient's plan of care. Updated patient's son, Jay, on plan of care for patient. Patient able to have bowel movement today.
[2022-09-19 16:00] VITALS: BP_SYST 120
[2022-09-19] MEDS: cefTRIAXone 1 GM in D5W 50 ML IV SCH (16:39)
[2022-09-19] MEDS ORDERED: AUG875 PO (16:53)
[2022-09-19 17:43] VITALS: BP_SYST 136
[2022-09-19 20:00] VITALS: BP_SYST 129
--- NOTE | 2022-09-19 20:06 | NUR ---
Dr. Lemons with IV antibiotics to stop for night time due to change in augmentin.
--- NOTE | 2022-09-19 20:14 | NUR ---
Report given to hourly shift RN for continuity of care. Patient stable condition. No distress noted.
--- NOTE | 2022-09-19 20:15 | NUR ---
INITIAL NOTES: REPORT RECEIVED FROM DAY SHIFT RN , PT IS WAITING FOR DC TONIGHT .RN DCD PTS IV ALREADY ;RN STATED PT DOESNT NEED HER ANTIBIOTIC TONIGHT PER MD SINCE SHE WILL BE STARTING ON AUGMENTING FROM TOMORROW . VITALS ARE STABLE ; ASSESSMENT COMPLETED , BED IN LOW AND LOCK POSITION, CALL HUDSON IN REACH ; BED ALARM IS ON; PT WAS INCONTINENT WITH URINE , PT CLEANED , TURNED AND REPOSITIONED , NOTICED PTS ABDOMEN IS STILL DISTENDED . PER REPORT PT HAD 5 BM TODAY . WILL CONTINUE TO MONITOR PT .
[2022-09-19] MEDS ORDERED: metroNIDAZOLE 500 mg/NS 100 ML IV SCH (21:00)
--- NOTE | 2022-09-19 21:00 | NUR ---
MEDICATION/PICTURES : DUE MEDS GIVEN PER ORDER .PT SWALLOWED GOOD , NO S/S OF ANY ASPIRATION NOTICED . LEFT HIP AND LOWER LEG PICTURES TAKEN . LEFT LOWER LEG NOTICED SKIN TEAR? , HEALED AND DRY AT THIS TIME, CLEANED WITH NS , PAT DRIED AND APPLIED FOAM DRESSING TO PROTECT .
--- NOTE | 2022-09-19 21:10 | NUR ---
EMILY FROM [facility] CALLED , ASKED ME ABOUT WHAT TIME PT IS COMING THERE , INFORMED HER THAT WATNG FOR THE AMBULANCE TO COME . SUPPOSED TO BE HERE BY 2099.
--- NOTE | 2022-09-19 21:15 | NUR ---
[facility] CALLED: CALLED AND TALKED WITH ILA SON , NOTIFIED HIM ABOUT THE TRANSFER TO [facility] , HE STATED HE IS AWARE ABOUT IT .
--- NOTE | 2022-09-19 21:55 | NUR ---
[facility] CALLED : KIKO CHARGE NURSE FROM [facility] CALLED AND ASKED ABOUT THE PT ARRIVAL , INFORMED HIM THAT WAITING FOR THE AMBULANCE TO COME AND FUEL OIL TRUCK DRIVER THE PT , KIKO STATED SINCE ITS ALMOST 10 PM HE CANNOT ACCEPT THE PT SINCE HIS ADMITTING NURSE WILL BE GOING HOME AT 1030 PM , KIKO STATED HIS DON ISA IS KNOWS ABOUT IT . ALSO HE STATED OK TO TRANSFER PT TOMORROW AFTER 8 AM .
--- NOTE | 2022-09-19 22:13 | NUR ---
Called made to after hours rn case mgr, spoke to Francisca, she said she don't know yet who is flight operations engineer for [employer]. Said rn case mgr will call us as soon as she received the message. MIKY Higgins is aware.
--- NOTE | 2022-09-19 22:21 | NUR ---
[facility] CALLED : CALLED AND TALKED WITH LAURY FROM [facility] , INFORMED HER THAT SNF UNABLE TO ACCEPT THE PT TONIGHT AFTER 10 PM , REQUESTED TO RESCHEDULED TO IMPREGNATING MACHINE OPERATOR TOMORROW AFTER 8 AM PER SNF REQUEST , JULIETA RESCHEDULED IT FOR TOMORROW BETWEEN 8:30AM - 9 AM .
--- NOTE | 2022-09-19 22:34 | NUR ---
CALLED : CALLED AND TALKED WITH DR BURNS , NOTIFIED THAT PT WAS UNABLE TO TRANSFER TONIGHT- AMBULANCE DIDNT COME AND FACILITY CALLED AND STATED THEY CANNOT ACCEPT THE PT TONIGHT AFTER 10 PM ,THEY ARE OK TO TAKE THE PT TOMORROW AFTER 8 AM . SAID OK TO DC PT TOMORROW MORNING .
--- NOTE | 2022-09-19 22:40 | NUR ---
CALLED AND TALKED WITH SON ILA , INFORMED HIM THAT PT WILL BE TRANSFERRING ONLY TOMORROW MORNING SINCE AMBULANCE DIDNT CAME AND SNF CANNOT ACCEPT PT AFTER 10 PM .
[2022-09-20 00:10] VITALS: BP_SYST 134
[2022-09-20] MEDS: IPRATROPIUM/ALBUTEROL SULFATE 3 ML AMPUL.NEB (DUONEB) INH SCH ×2 (00:37→07:44)
--- NOTE | 2022-09-20 01:41 | NUR ---
RN NOTES: PT IS SLEEPING , NOT IN ANY ACUTE DISTRESS; WILL CONTINUE TO MONITOR PT .
--- NOTE | 2022-09-20 03:48 | NUR ---
RN NOTES: PT IS AWAKE , CONTINUOUSLY CALLING AND STATED SHE IS NT COMFORTABLE , EACH TIME I HELPED HER TO BE MORE COMFORTABLE ;SHE STATED I THINK THIS BED IS NOT HELPING ME , I TRIED TO TURN AND REPOSITION HER , AFTER FEW SEC SHE CALL BACK AND ASK ME TO REMOVE THE PILLOWS . PT IS COMFORTABLE AT THIS TIME. WILL CONTINUE TO MONITOR PT
--- NOTE | 2022-09-20 07:10 | NUR ---
MD ROUNDS/ CLOSING NOTES: DR MEDINA MADE ROUNDS, INFORMED MD THAT PT IS C/O NAUSEA,MD ORDERED 1 TIME ZOFRAN , ALSO NOTIFIED D THAT PT DIDNT HAVE ANY BM LAST NIGHT BUT PER DAY SHIFT PT HAD 5 BM . ABDOMEN IS STILL DISTENDED AND FIRM . ALL NEEDS ATTENDED . REQUESTED DAY SHIFT RN TO GIVE ZOFRAN TO THE PT. REPORT GIVEN TO RN .
[2022-09-20] MEDS ORDERED: ONDANSETRON 4 MG ODT TAB PO ONE (07:15)
[2022-09-20 08:00] VITALS: BP_SYST 127
[2022-09-20] MEDS: predniSONE 20 MG TABLET PO SCH (08:19)
[2022-09-20] MEDS: LACTULOSE 20 GM/30 ML UDC PO SCH (08:19)
[2022-09-20] MEDS: DOCUSATE SODIUM 100 MG CAPSULE PO SCH (08:19)
[2022-09-20] MEDS ORDERED: POLYETHYLENE GLYCOL 3350, 17 GM/ POWD.PACK PO SCH (09:00)
--- NOTE | 2022-09-20 09:35 | NUR ---
Dc Transfer Notes: Transfer packet given to [facility]. No iv access. Patient was transported to [facility] via s ambulance in stable condition.
[2022-09-20] MEDS ORDERED: SENNOSIDES 8.6 MG TABLET PO SCH (21:00)
== END 2022-09-20 09:35 | DRG 193 ==
LOC: SED 11:04 → STU 13:55 → SMU 09-12 23:46
PROVIDERS: ADMIT Internal Medicine; ATTEND Internal Medicine
DX: J18.9 Pneumonia, unspecified organism (principal); J96.01 Acute respiratory failure with hypoxia; J44.1 Chronic obstructive pulmonary disease with (acute) exacerbation; E87.1 Hypo-osmolality and hyponatremia; J44.0 Chronic obstructive pulmonary disease with (acute) lower respiratory infection; N17.9 Acute kidney failure, unspecified; I13.0 Hypertensive heart and chronic kidney disease with heart failure and stage 1 through stage 4 chronic kidney disease, or unspecified chronic kidney disease; Z94.0 Kidney transplant status; I50.9 Heart failure, unspecified; K56.41 Fecal impaction; Z20.822 Contact with and (suspected) exposure to COVID-19; D64.9 Anemia, unspecified; N18.32 Chronic kidney disease, stage 3b; K59.81 Ogilvie syndrome; G83.9 Paralytic syndrome, unspecified; E87.6 Hypokalemia; Z90.49 Acquired absence of other specified parts of digestive tract; Z90.710 Acquired absence of both cervix and uterus
CPT/HCPCS: 0241U; 36415; 36600; 71045; 74018; 76376; 80048; 80053; 81003; 82803-TC; 83605; 83735; 83880; 84100; 84132; 84484; 85025; 85651-TC; 86140; 87040; 93005; 93306; 94640; 94760; 97110-GP; 97116-GP; 97530-GP; 99285; C9113; G0378; J0456; J0696; J1030; J1450; J1650; J1940; J2543; J3480; J3490; J7030; J7050; J7060; J7512; Q0162